=== PATIENT | female | born 1970 | race Caucasian/White ===

== ENCOUNTER → 2017-02-22 | Day surgery (SDC) | payer OTHER ==
[~2017-02-22] VITALS: Ht 162.6 cm; Wt 109.1 kg
[2017-02-22 07:48] LABS: HCT 39.7 % (37.0-47.0); HGB 12.9 g/dl (12.5-16.0); MCH 28.3 pg (25.0-31.0); MCHC 32.5 g/dL (32.0-36.0); MCV 87.1 fL (78.0-100.0); MPV 10.7 fL (6.0-9.5); RBC 4.56 M/uL (4.20-5.40); RDW 13.5 % (11.5-14.0); WBC 6.5 K/uL (4.0-10.5)
== END | disposition home or self-care (01) ==
LOC: FAS 07:08
PROVIDERS: Legal Medicine
DX: M23.203 Derangement of unspecified medial meniscus due to old tear or injury, right knee (principal); M23.91 Unspecified internal derangement of right knee; M23.41 Loose body in knee, right knee; E28.2 Polycystic ovarian syndrome; Z87.442 Personal history of urinary calculi; F31.9 Bipolar disorder, unspecified; Z90.49 Acquired absence of other specified parts of digestive tract; Z98.84 Bariatric surgery status
CPT/HCPCS: 36415; 84703; J0690; J1170; J2274; J2405; J2704; J3010

== ENCOUNTER → 2022-05-11 | Day surgery (SDC) | payer OTHER ==
[~2022-05-11] VITALS: Ht 162.6 cm; Wt 116.3 kg
[~2022-05-11] MED LIST: DESYREL50 MG PO; LAMOTRIGINE200 MG PO
[2022-05-11 08:13] LABS: HCG (URINE) SCREEN NEGATIVE (NEGATIVE)
[2022-05-11 08:34] LABS: HCT 40.5 % (37.0-47.0); HGB 12.9 g/dl (12.5-16.0); MCH 27.5 pg (25.0-31.0); MCHC 31.9 g/dL (32.0-36.0); MCV 86.4 fL (78.0-100.0); MPV 10.1 fL (6.0-9.5); RBC 4.69 M/uL (4.20-5.40); RDW 14.1 % (11.5-14.0); WBC 6.6 K/uL (4.0-10.5)
[2022-05-11 09:11] LABS: ALBUMIN 3.4 g/dL (3.4-5.0); BILIRUBIN - TOTAL 0.4 mg/dL (0.2-1.0); BUN/CREAT RATIO (CALC) 8.5 RATIO; CREATININE 1.06 mg/dL (0.51-0.95); GLOBULIN (CALCULATION) 3.8 g/dL; POTASSIUM 3.6 mmol/L (3.5-5.1); TOTAL PROTEIN 7.2 g/dL (6.4-8.2)
== END | disposition home or self-care (01) ==
LOC: FAS 07:58
PROVIDERS: Surgery
DX: Z12.11 Encounter for screening for malignant neoplasm of colon (principal); Z80.0 Family history of malignant neoplasm of digestive organs
CPT/HCPCS: 36415; 80053; 84703; J2704; J7120